=== PATIENT | male | born 1990 | race Caucasian/White ===

== ENCOUNTER 2024-01-27 08:48 | Emergency (ER) | payer SELFPAY ==
[~2024-01-27] VITALS: Ht 185.4 cm; Wt 76.3 kg
[2024-01-27 08:59] VITALS: BP 132/66; PULSE 73; RESP 16; TEMP 97.1
[2024-01-27] MEDS: GENTAMICIN SULFATE 0.3% OPHTHALMIC SOLUTION 5 ML OS ONE (10:56)
[2024-01-27] MEDS: ACETAMINOPHEN 500 MG TABLET PO ONE (10:56)
[2024-01-27] MEDS ORDERED: ACET-66 PO (11:10)
== END 2024-01-27 11:46 | disposition home or self-care (01) ==
LOC: EMS 08:48
DX: T15.02XA Foreign body in cornea, left eye, initial encounter (principal); W45.8XXA Other foreign body or object entering through skin, initial encounter; Y93.89 Activity, other specified; Y92.89 Other specified places as the place of occurrence of the external cause; Y99.8 Other external cause status
CPT/HCPCS: 99282; Z7502; Z7610